=== PATIENT | female | born 1985 | race Caucasian/White ===

== ENCOUNTER 2021-02-13 16:22 | Emergency (ER) | payer OTHER ==
[~2021-02-13] VITALS: Ht 160 cm; Wt 95.3 kg
[2021-02-13] MEDS ORDERED: CITROMAX (17:21)
== END 2021-02-14 10:15 | disposition home or self-care (01) ==
LOC: ER 16:22
DX: U07.1 COVID-19 (principal); R09.02 Hypoxemia